=== PATIENT | male | born 1955 | race Hispanic/Latino ===

== ENCOUNTER 2025-07-19 21:14 | Emergency (ER) | payer MEDICARE ==
[~2025-07-19] VITALS: Ht 162.6 cm; Wt 74.8 kg
[2025-07-19 21:15] VITALS: PULSE 66; RESP 18; TEMP 98
[2025-07-19 22:56] LABS: BASOPHILS % 0.4 % (0.0-1.0); EOSINOPHILS % 3.9 % (0.0-6.0); LYMPHOCYTES % 13.8 % (18.0-39.1); MONOCYTES % 9.1 % (4.4-11.3); NEUTROPHILS % 72.4 % (38.7-80.0); RED CELL DISTRIBUTION WIDTH 12.5 % (11.7-14.4)
[2025-07-19 23:06] LABS: INR 1.18
[2025-07-19 23:23] LABS: EST GLOMERULAR FILTRATION RATE 70.0 ML/MIN (>=60)
[2025-07-19] MEDS ORDERED: SODIUM CHLORIDE 0.9% 1000ML 1,000 ML ONE (23:46)
[2025-07-19] MEDS: ASPIRIN 81 MG CHEW TAB PO ONE (23:50)
[2025-07-19] MEDS: SODIUM CHLORIDE 0.9% 1000ML 1,000 ML IV STA (23:50)
[2025-07-20 04:09] VITALS: BP 189/78; O2SAT 100
== END 2025-07-20 01:40 | disposition other institution (70) ==
LOC: ER 21:20
DX: R51.9 Headache, unspecified (principal); I65.21 Occlusion and stenosis of right carotid artery; R53.1 Weakness; W18.39XA Other fall on same level, initial encounter; Y92.89 Other specified places as the place of occurrence of the external cause; Z86.73 Personal history of transient ischemic attack (TIA), and cerebral infarction without residual deficits
CPT/HCPCS: 36415; 70450; 70496; 70498; 71045; 80053; 80320; 82550; 83690; 83880; 84484; 85025; 85610; 93005; 99284; J7030